=== PATIENT | male | born 1965 | race Two or more races ===

== ENCOUNTER 2019-08-21 12:55 | Emergency (ER) | payer BC, MEDICAID ==
[~2019-08-21] VITALS: Ht 172.7 cm; Wt 63.5 kg
[2019-08-21 13:10] VITALS: BP 124/70
--- NOTE | 2019-08-21 13:10 | NUR ---
ED Nurse Note: Pt walked in from home c/o sore throat and chest congestion x 2 days. Pt says his chest hurts when he breathes. Pt denies fever/chills/n/v/d. Respirations even and unlabored on room air. Vitals stable as documented.
[2019-08-21] MEDS ORDERED: Sodium Chloride 1,900 ML IVLG ONE (13:15)
[2019-08-21] MEDS ORDERED: Nitroglycerin Subl 0.4mg tab SL PRN (13:15)
[2019-08-21 13:42] VITALS: BP 123/72
--- NOTE | 2019-08-21 13:50 | Emergency Room Report ---
History of Present Illness General Chief Complaint: Upper Respiratory Illness Source: Patient (Joseline Hutchins M.D.) Present Illness HPI Patient is a 54-year-old male denies any significant past medical history who presents to the ER complaining of bilateral chest pressure and shortness of breath worse on deep inspiration for the past 2 days. Patient states that 5 days ago he started with some throat pain and nasal congestion. He states that he does not have a cough. He denies any fever or chills. He denies any recent travel. He denies any sick contacts. He denies any history of smoking. He is not on aspirin. Patient denies any abdominal pain, nausea or vomiting. COVID-19 risk:Travel to affect: No Has patient experienced lizama: No (Joseline Hutchins M.D.) Allergies: Coded Allergies: No Known Allergies (Unverified , 08/21/19) Patient History Past Medical History: none Past Surgical History: none Social History: Denies: smoking, alcohol use, drug use (Joseline Hutchins M.D. ) Nursing Documentation-[facility] Past Medical History: No Stated History (Joseline Hutchins M.D.) Review of Systems All Other Systems: negative except mentioned in HPI (Joseline Hutchins M.D.) Physical Exam Vital Signs Date Time Temp Pulse Resp B/P (MAP) Pulse Ox O2 Delivery O2 Flow Rate FiO2 08/21/19 13:00 98.1 76 16 124/70 (88) 99 Room Air Sp02 EP Interpretation: reviewed, normal General Appearance: no apparent distress, alert, GCS 15, non-toxic, thin Head: normocephalic, atraumatic Eyes: bilateral eye normal inspection, bilateral eye PERRL ENT: hearing grossly normal, normal pharynx, no angioedema, normal voice Neck: full range of motion, supple/symm/no masses Respiratory: chest non-tender, lungs clear, normal breath sounds, speaking full sentences Cardiovascular #1: regular rate, rhythm, no edema Gastrointestinal: normal bowel sounds, non tender, soft, non-distended, no guarding, no rebound Rectal: deferred Genitourinary: normal inspection, no CVA tenderness Musculoskeletal: back normal, normal range of motion, calf tenderness, gait/ station normal, non-tender Neurologic: alert, motor strength/tone normal, oriented x3, sensory intact, responsive, speech normal Psychiatric: judgement/insight normal, memory normal, mood/affect normal, no suicidal/homicidal ideation Skin: no rash Lymphatic: no adenopathy (Joseline Hutchins M.D.) Medical Decision Making Diagnostic Impression: Primary Impression: Chest pain Additional Impressions: SOB (shortness of breath) Viral syndrome ER Course Patient given ASA and sl Nitro for chest pain which he states has improved. Labs pending. Covid-19 precautions initiated upon patient arrival. Afebrile in ER. Will require admission for chest pain ro ACS. Signed out to oncoming pending Labs, reevaluation and final disposition at 1430. Laboratory Tests Test 08/21/19 13:35 08/21/19 14:35 White Blood Count 8.2 K/UL (4.8-10.8) Red Blood Count 5.03 M/UL (4.70-6.10) Hemoglobin 15.1 G/DL (14.2-18.0) Hematocrit 44.5 % (42.0-52.0) Mean Corpuscular Volume 88 FL (80-99) Mean Corpuscular Hemoglobin 30.1 PG (27.0-31.0) Mean Corpuscular Hemoglobin Concent 34.0 G/DL (32.0-36.0) Red Cell Distribution Width 12.6 % (11.6-14.8) Platelet Count 200 K/UL (150-450) Mean Platelet Volume 8.8 FL (6.5-10.1) Neutrophils (%) (Auto) 66.4 % (45.0-75.0) Lymphocytes (%) (Auto) 26.0 % (20.0-45.0) Monocytes (%) (Auto) 6.1 % (1.0-10.0) Eosinophils (%) (Auto) 0.4 % (0.0-3.0) Basophils (%) (Auto) 1.1 % (0.0-2.0) Prothrombin Time 10.7 SEC (9.30-11.50) Prothrombin Time INR 1.0 (0.9-1.1) Activated Partial Thromboplast Time 27 SEC (23-33) D-Dimer 0.19 mg/L FEU (0.00-0.49) Sodium Level 141 MMOL/L (136-145) Potassium Level 4.0 MMOL/L (3.5-5.1) Chloride Level 103 MMOL/L (98-107) Carbon Dioxide Level 26 MMOL/L (21-32) Anion Gap 12 mmol/L (5-15) Blood Urea Nitrogen 13 mg/dL (7-18) Creatinine 0.7 MG/DL (0.55-1.30) Estimate Glomerular Filtration Rate > 60 mL/min (>60) Glucose Level 88 MG/DL (74-106) Lactic Acid Level 0.70 mmol/L (0.4-2.0) Calcium Level 9.3 MG/DL (8.5-10.1) Magnesium Level 2.2 MG/DL (1.8-2.4) Total Bilirubin 0.4 MG/DL (0.2-1.0) Aspartate Amino Transferase (AST) 28 U/L (15-37) Alanine Aminotransferase (ALT) 37 U/L (12-78) Alkaline Phosphatase 73 U/L (46-116) Total Creatine Kinase 140 U/L (26-308) Troponin I 0.000 ng/mL (0.000-0.056) Total Protein 7.5 G/DL (6.4-8.2) Albumin 4.0 G/DL (3.4-5.0) Globulin 3.5 g/dL Albumin/Globulin Ratio 1.1 (1.0-2.7) Urine Color Pale yellow Urine Appearance Clear Urine pH 6.5 (4.5-8.0) Urine Specific [place] 1.010 (1.005-1.035) Urine Protein Negative (NEGATIVE) Urine Glucose (UA) Negative (NEGATIVE) Urine Ketones Negative (NEGATIVE) Urine Blood 4+ (NEGATIVE) H Urine Nitrite Negative (NEGATIVE) Urine Bilirubin Negative (NEGATIVE) Urine Urobilinogen Normal MG/DL (0.0-1.0) Urine Leukocyte Esterase Negative (NEGATIVE) Urine RBC 5-10 /HPF (0 - 0) H Urine WBC 0-2 /HPF (0 - 0) Urine Squamous Epithelial Cells None /LPF (NONE/OCC) Urine Bacteria Few /HPF (NONE) Microbiology Date/Time Source Procedure Growth Status 08/21/19 14:10 Nasal Nares - Final Complete 08/21/19 14:10 Nasal Nares - Final Complete (Joseline Hutchins M.D.) ER Course This patient was signed out to me by Dr. Sepulveda. Patient was pending admission for chest pain. He was also on COVID-19 precautions. The patient called me to the bedside and stated that he did not want to be admitted to the hospital. I did educate the patient that I could not rule out heart pain, pulmonary embolism or coronavirus. The patient is alert and oriented x4 and able to make his own medical decision. The patient continued to refuse admission to the hospital. The patient left AGAINST MEDICAL ADVICE. (Ksenia Shore DO) EKG Diagnostic Results EKG Time: 13:53 EP Interpretation: MD Liset Rate: normal Rhythm: NSR ST Segments: no acute changes ASA given to the pt in ED: Yes (Joseline Hutchins M.D.) Rhythm Strip Diag. Results Rhythm Strip Time: 14:35 EP Interpretation: yes - Liset CARDONA Rate: 70 Rhythm: NSR, no PVC's, no ectopy (Joseline Hutchins M.D.) Last Vital Signs Date Time Temp Pulse Resp B/P (MAP) Pulse Ox O2 Delivery O2 Flow Rate FiO2 08/21/19 13:42 123/72 08/21/19 13:00 98.1 76 16 99 Room Air (Joseline Hutchins M.D.) Disposition: AGAINST MEDICAL ADVICE Signed Out To: Oncoming EDMD at 1430. (Joseline Hutchins M.D.) Joseline Hutchins M.D. Aug 21, 2019 13:50 Ksenia Shore DO Aug 21, 2019 22:32
--- NOTE | 2019-08-21 14:20 | Diagnostic Imaging Report ---
Indication: Shortness of breath Technique: One view of the chest Comparison: none Findings: Lungs and pleural spaces are clear. Heart size is normal. Impression: No acute process
[2019-08-21 14:25] LABS: BASOPHILS % (AUTO) 1.1 % (0.0-2.0); EOSINOPHILS % (AUTO) 0.4 % (0.0-3.0); HEMATOCRIT 44.5 % (42.0-52.0); HEMOGLOBIN 15.1 G/DL (14.2-18.0); MEAN CORPUSCULAR VOLUME 88 FL (80-99); MONOCYTES % (AUTO) 6.1 % (1.0-10.0); NEUTROPHILS % (AUTO) 66.4 % (45.0-75.0); PLATELET COUNT 200 K/UL (150-450); RED BLOOD COUNT 5.03 M/UL (4.70-6.10); RED CELL DISTRIBUTION WIDTH 12.6 % (11.6-14.8); WHITE BLOOD COUNT 8.2 K/UL (4.8-10.8)
[2019-08-21 14:46] LABS: ANION GAP 12 mmol/L (5-15); BLOOD UREA NITROGEN 13 mg/dL (7-18); CALCIUM 9.3 MG/DL (8.5-10.1); CARBON DIOXIDE 26 MMOL/L (21-32); CHLORIDE 103 MMOL/L (98-107); CREATININE 0.7 MG/DL (0.55-1.30); SODIUM 141 MMOL/L (136-145)
[2019-08-21 14:52] LABS: ALANINE AMINOTRANSFERASE 37 U/L (12-78); ALBUMIN/GLOBULIN RATIO 1.1 (1.0-2.7); ALKALINE PHOSPHATASE 73 U/L (46-116); ASPARTATE AMINO TRANSFERASE 28 U/L (15-37); BILIRUBIN,TOTAL 0.4 MG/DL (0.2-1.0); CREATINE KINASE 140 U/L (26-308)
[2019-08-21 15:08] LABS: APPEARANCE,URINE CLEAR; BILIRUBIN, URINE NEGATIVE (NEGATIVE); COLOR,URINE PALE YELLOW; GLUCOSE, URINE (UA) NEGATIVE (NEGATIVE); KETONES,URINE NEGATIVE (NEGATIVE); LEUKOCYTE ESTERASE ,URINE NEGATIVE (NEGATIVE); NITRITE,URINE NEGATIVE (NEGATIVE); PH,URINE 6.5 (4.5-8.0); PROTEIN,URINE NEGATIVE (NEGATIVE); UROBILINOGEN,URINE NORMAL MG/DL (0.0-1.0)
--- NOTE | 2019-08-21 16:25 | NUR ---
ED Nurse Note: IV and ID band removed
--- NOTE | 2019-08-21 16:30 | NUR ---
AMA: SEE AMA FORM. Pt did not want to be admitted. ED MD spoke with pt and he decided he wanted to leave AMA. Pt aware of risks and benefits and was told if he had any difficulty breathing, come back to the ED. Pt aware. Pt signed AMA form and ambulated steadily out of the ED.
== END 2019-08-21 16:30 | disposition left against medical advice (07) ==
LOC: EMR 16:01
DX: R07.9 Chest pain, unspecified (principal); R06.02 Shortness of breath; B34.9 Viral infection, unspecified
CPT/HCPCS: 36415; 71045; 80053; 81003; 82550; 83605; 83735; 84484; 85025; 85379; 85610; 85730; 86710; 87040; 93005; 96360; 99284; J7030